=== PATIENT | male | born 1975 | race Caucasian/White ===

== ENCOUNTER 2020-10-03 19:07 | Emergency (ER) | payer OTHER ==
[~2020-10-03] VITALS: Ht 172.7 cm; Wt 56.8 kg
[2020-10-03 19:48] LABS: BASO # 0.1 (0.0-0.2); BASO % 0.8 % (0.0-2.0); EOS # 0.1 (0.0-0.7); EOS % 0.8 % (0-4.0); GRAN # 9.2 (1.4-6.5); GRAN % 72.3 % (42.2-75.2); HEMATOCRIT 43.2 % (42.0-52.0); HEMOGLOBIN 14.6 g/dl (13.5-18.0); LYMPH # 2.2 (1.2-3.4); LYMPH % 17.5 % (20.0-51.0); MEAN CELL VOLUME 91 fl (80.0-100.0); MEAN CORPUSCULAR HEMOGLOBIN 31 pg (27.0-31.0); MEAN CORPUSCULAR HGB CONC 34 g/dl (33.0-37.0); MEAN PLATELET VOLUME 9.2 fl (7.4-10.4); MONO # 1.1 (0.1-0.6); MONO % 8.4 % (1.7-9.3); PLATELET COUNT 447 K/mm3 (130-400); RED BLOOD COUNT 4.77 M/mm3 (4.20-5.60); REDCELL DISTRIBUTION WIDTH-CV 12.6 % (11.5-14.5)
[2020-10-03 19:53] LABS: ALANINE AMINOTRANSFERASE 17 U/L (4-49); ALBUMIN 4.5 gm/dL (3.5-5.0); ALKALINE PHOSPHATASE 58 U/L (50-136); ANION GAP 11 mmol/L (7-16); AST,SGOT 40 U/L (15-37); BILIRUBIN,TOTAL 0.6 mg/dL (0.0-1.0); BLOOD UREA NITROGEN 14 mg/dL (9-20); CALCIUM 9.4 mg/dL (8.4-10.2); CARBON DIOXIDE 27 mmol/L (22-30); CHLORIDE 105 mmol/L (98-107); CREATININE, serum 1.16 (0.66-1.25); GLUCOSE 123 mg/dL (74-106); POTASSIUM 3.8 mmol/L (3.4-5.0); SODIUM 142 mmol/L (137-145); TOTAL PROTEIN 7.8 gm/dL (6.4-8.2)
[2020-10-03 20:09] LABS: TROPONIN-I < 0.012 ng/mL (0.000-0.035)
[2020-10-03 23:04] VITALS: BP 110/71; PULSE 67; TEMP 98.1
== END 2020-10-03 23:05 | disposition home or self-care (01) ==
LOC: COL.ER 19:07
PROVIDERS: Personal Emergency Response Attendant
DX: R07.2 Precordial pain (principal); I25.10 Atherosclerotic heart disease of native coronary artery without angina pectoris; I25.2 Old myocardial infarction; F17.200 Nicotine dependence, unspecified, uncomplicated; Z95.9 Presence of cardiac and vascular implant and graft, unspecified
CPT/HCPCS: J2270; J2405

== ENCOUNTER 2020-10-04 07:29 | Emergency (ER) | payer OTHER ==
[~2020-10-04] VITALS: Ht 172.7 cm; Wt 56.8 kg
[2020-10-04 07:35] VITALS: BP 131/89; TEMP 97.7
[2020-10-04 08:13] LABS: COLLECTION METHOD CLEAN CATCH
[2020-10-04 08:21] LABS: MUCOUS Present /lpf; PH 5 (5-8); SQUAMOUS EPITHELIAL None Seen /hpf; URINE APPEARANCE Clear; URINE BACTERIA None Seen /hpf; URINE BILIRUBIN Negative (NEGATIVE); URINE BLOOD Negative (NEGATIVE); URINE COLOR Yellow; URINE GLUCOSE Negative (NEGATIVE); URINE KETONE Negative (NEGATIVE); URINE LEUKOCYTE ESTERASE Negative (NEGATIVE); URINE NITRATE Negative (NEGATIVE); URINE PROTEIN(semi-quant) Negative (NEGATIVE); URINE RBC 0-2 /hpf; URINE UROBILINOGEN >=4.0 mg/dL (NEGATIVE)
[2020-10-04 08:27] LABS: BASO # 0.1 (0.0-0.2); BASO % 1.2 % (0.0-2.0); EOS # 0.3 (0.0-0.7); EOS % 3.8 % (0-4.0); GRAN # 4.3 (1.4-6.5); GRAN % 57.9 % (42.2-75.2); HEMATOCRIT 39.6 % (42.0-52.0); HEMOGLOBIN 13.1 g/dl (13.5-18.0); LYMPH # 1.9 (1.2-3.4); LYMPH % 25.1 % (20.0-51.0); MEAN CELL VOLUME 92 fl (80.0-100.0); MEAN CORPUSCULAR HEMOGLOBIN 31 pg (27.0-31.0); MEAN CORPUSCULAR HGB CONC 33 g/dl (33.0-37.0); MEAN PLATELET VOLUME 8.8 fl (7.4-10.4); MONO # 0.9 (0.1-0.6); MONO % 11.7 % (1.7-9.3); PLATELET COUNT 364 K/mm3 (130-400); REDCELL DISTRIBUTION WIDTH-CV 12.8 % (11.5-14.5)
[2020-10-04 08:30] LABS: ACETAMINOPHEN < 10 ug/mL (10-30); ALANINE AMINOTRANSFERASE 14 U/L (4-49); ALBUMIN 3.9 gm/dL (3.5-5.0); ALKALINE PHOSPHATASE 57 U/L (50-136); ANION GAP 4 mmol/L (7-16); AST,SGOT 29 U/L (15-37); BILIRUBIN,TOTAL 0.3 mg/dL (0.0-1.0); BLOOD UREA NITROGEN 22 mg/dL (9-20); CALCIUM 8.4 mg/dL (8.4-10.2); CARBON DIOXIDE 27 mmol/L (22-30); CHLORIDE 106 mmol/L (98-107); CREATININE, serum 0.93 (0.66-1.25); GLUCOSE 91 mg/dL (74-106); POTASSIUM 3.6 mmol/L (3.4-5.0); SALICYLATE < 1.0 mg/dL; SODIUM 137 mmol/L (137-145); TOTAL PROTEIN 6.4 gm/dL (6.4-8.2)
[2020-10-04 08:32] LABS: TRICYCLIC ANTIDEPRESS URINE NEGATIVE
[2020-10-04 09:04] LABS: TSH w REFLEX 2.017 uIU/mL (0.350-4.940)
[2020-10-04 14:51] VITALS: PULSE 84
--- NOTE | 2020-10-04 16:34 | NUR ---
trim line worker contacted [facility] and confirmed that they did not have any detox or inpatient treatment beds at this time. Worker contacted and arranged for patient to have a detox phone screen with [facility], which patient did not meet criteria. Worker provided patient with phone numbers to [facility] so that patient can continue to contact them and be screened for inpatient/outpatient treatment. Patient will discharge today.
== END 2020-10-04 14:51 | disposition home or self-care (01) ==
LOC: COL.ER 07:29
PROVIDERS: Emergency Medicine
DX: F15.20 Other stimulant dependence, uncomplicated (principal)

== ENCOUNTER 2020-10-04 21:19 | Emergency (ER) | payer OTHER ==
[~2020-10-04] VITALS: Ht 172.7 cm; Wt 68.2 kg
[2020-10-04 21:50] LABS: COLLECTION METHOD CLEAN CATCH
[2020-10-04 21:56] LABS: BASO # 0.1 (0.0-0.2); BASO % 1.2 % (0.0-2.0); EOS # 0.3 (0.0-0.7); EOS % 3.5 % (0-4.0); GRAN % 66.8 % (42.2-75.2); HEMATOCRIT 40.6 % (42.0-52.0); HEMOGLOBIN 13.6 g/dl (13.5-18.0); LYMPH # 1.7 (1.2-3.4); LYMPH % 22.1 % (20.0-51.0); MEAN CELL VOLUME 92 fl (80.0-100.0); MEAN CORPUSCULAR HEMOGLOBIN 31 pg (27.0-31.0); MEAN CORPUSCULAR HGB CONC 34 g/dl (33.0-37.0); MEAN PLATELET VOLUME 8.9 fl (7.4-10.4); MONO # 0.5 (0.1-0.6); PLATELET COUNT 384 K/mm3 (130-400); REDCELL DISTRIBUTION WIDTH-CV 12.9 % (11.5-14.5)
[2020-10-04 21:58] LABS: MUCOUS Present /lpf; PH 5 (5-8); SQUAMOUS EPITHELIAL None Seen /hpf; URINE APPEARANCE Clear; URINE BACTERIA None Seen /hpf; URINE BILIRUBIN Negative (NEGATIVE); URINE BLOOD Negative (NEGATIVE); URINE COLOR Yellow; URINE GLUCOSE Negative (NEGATIVE); URINE KETONE Negative (NEGATIVE); URINE LEUKOCYTE ESTERASE Negative (NEGATIVE); URINE NITRATE Negative (NEGATIVE); URINE PROTEIN(semi-quant) Negative (NEGATIVE); URINE RBC 0-2 /hpf; URINE UROBILINOGEN >=4.0 mg/dL (NEGATIVE)
[2020-10-04 22:09] LABS: TRICYCLIC ANTIDEPRESS URINE NEGATIVE
[2020-10-04 22:24] LABS: ALANINE AMINOTRANSFERASE 16 U/L (4-49); ALBUMIN 4.1 gm/dL (3.5-5.0); ALKALINE PHOSPHATASE 54 U/L (50-136); ANION GAP 8 mmol/L (7-16); AST,SGOT 33 U/L (15-37); BILIRUBIN,TOTAL 0.3 mg/dL (0.0-1.0); BLOOD UREA NITROGEN 22 mg/dL (9-20); CALCIUM 8.7 mg/dL (8.4-10.2); CARBON DIOXIDE 22 mmol/L (22-30); CHLORIDE 107 mmol/L (98-107); CREATININE, serum 0.92 (0.66-1.25); GLUCOSE 92 mg/dL (74-106); POTASSIUM 3.7 mmol/L (3.4-5.0); SODIUM 137 mmol/L (137-145); TOTAL PROTEIN 6.8 gm/dL (6.4-8.2)
[2020-10-04 22:25] LABS: ACETAMINOPHEN < 10 ug/mL (10-30); ALCOHOL(ethanol),MEDICAL < 10 mg/dL; SALICYLATE < 1.0 mg/dL
[2020-10-05 00:10] VITALS: BP 108/68; PULSE 67; TEMP 98
== END 2020-10-05 00:10 | disposition home or self-care (01) ==
LOC: COL.ER 21:19
PROVIDERS: Emergency Medicine
DX: R45.851 Suicidal ideations (principal); F15.10 Other stimulant abuse, uncomplicated; F31.9 Bipolar disorder, unspecified; I25.10 Atherosclerotic heart disease of native coronary artery without angina pectoris; F17.200 Nicotine dependence, unspecified, uncomplicated; Z95.5 Presence of coronary angioplasty implant and graft

== ENCOUNTER 2020-10-07 12:42 | Emergency (ER) | payer OTHER ==
[~2020-10-07] VITALS: Ht 172.7 cm; Wt 56.8 kg
[2020-10-07 13:20] VITALS: TEMP 98.4
[2020-10-07 14:07] LABS: BASO # 0.1 (0.0-0.2); BASO % 1.1 % (0.0-2.0); EOS # 0.2 (0.0-0.7); EOS % 2.4 % (0-4.0); GRAN # 5.8 (1.4-6.5); GRAN % 69.4 % (42.2-75.2); HEMATOCRIT 44.3 % (42.0-52.0); HEMOGLOBIN 14.4 g/dl (13.5-18.0); LYMPH # 1.7 (1.2-3.4); LYMPH % 20.1 % (20.0-51.0); MEAN CELL VOLUME 93 fl (80.0-100.0); MEAN CORPUSCULAR HEMOGLOBIN 30 pg (27.0-31.0); MEAN CORPUSCULAR HGB CONC 33 g/dl (33.0-37.0); MONO # 0.6 (0.1-0.6); MONO % 6.8 % (1.7-9.3); PLATELET COUNT 395 K/mm3 (130-400); RED BLOOD COUNT 4.75 M/mm3 (4.20-5.60)
[2020-10-07 14:18] LABS: ALANINE AMINOTRANSFERASE 13 U/L (4-49); ALBUMIN 3.5 gm/dL (3.5-5.0); ALKALINE PHOSPHATASE 48 U/L (50-136); ANION GAP 5 mmol/L (7-16); AST,SGOT 22 U/L (15-37); BILIRUBIN,TOTAL 0.3 mg/dL (0.0-1.0); BLOOD UREA NITROGEN 15 mg/dL (9-20); CALCIUM 8.9 mg/dL (8.4-10.2); CARBON DIOXIDE 29 mmol/L (22-30); CHLORIDE 105 mmol/L (98-107); CREATININE, serum 0.84 (0.66-1.25); GLUCOSE 57 mg/dL (74-106); POTASSIUM 4.4 mmol/L (3.4-5.0); SODIUM 139 mmol/L (137-145); TOTAL PROTEIN 6.3 gm/dL (6.4-8.2)
[2020-10-07 14:39] LABS: TROPONIN-I < 0.012 ng/mL (0.000-0.035)
[2020-10-07 18:02] VITALS: BP 120/84; PULSE 61
== END 2020-10-07 18:07 | disposition home or self-care (01) ==
LOC: COL.ER 12:42
PROVIDERS: Emergency Medicine
DX: R07.89 Other chest pain (principal); F17.210 Nicotine dependence, cigarettes, uncomplicated; Z95.5 Presence of coronary angioplasty implant and graft

== ENCOUNTER 2020-11-01 11:16 | Emergency (ER) | payer MEDICAID ==
[~2020-11-01] VITALS: Ht 172.7 cm; Wt 66.8 kg
[2020-11-01 11:37] LABS: BASO # 0.1 (0.0-0.2); EOS # 0.3 (0.0-0.7); EOS % 2.1 % (0-4.0); GRAN % 72.5 % (42.2-75.2); HEMATOCRIT 39.8 % (42.0-52.0); HEMOGLOBIN 13.4 g/dl (13.5-18.0); LYMPH % 15.7 % (20.0-51.0); MEAN CELL VOLUME 91 fl (80.0-100.0); MEAN CORPUSCULAR HEMOGLOBIN 31 pg (27.0-31.0); MEAN CORPUSCULAR HGB CONC 34 g/dl (33.0-37.0); MEAN PLATELET VOLUME 9.1 fl (7.4-10.4); MONO % 8.1 % (1.7-9.3); PLATELET COUNT 422 K/mm3 (130-400); RED BLOOD COUNT 4.36 M/mm3 (4.20-5.60); REDCELL DISTRIBUTION WIDTH-CV 13.2 % (11.5-14.5)
[2020-11-01 11:49] LABS: ALANINE AMINOTRANSFERASE 14 U/L (4-49); ALKALINE PHOSPHATASE 43 U/L (50-136); ANION GAP 7 mmol/L (7-16); AST,SGOT 20 U/L (15-37); BILIRUBIN,TOTAL 0.3 mg/dL (0.0-1.0); BLOOD UREA NITROGEN 22 mg/dL (9-20); CALCIUM 9.7 mg/dL (8.4-10.2); CARBON DIOXIDE 25 mmol/L (22-30); CHLORIDE 109 mmol/L (98-107); CREATININE, serum 0.87 (0.66-1.25); GLUCOSE 101 mg/dL (74-106); LIPASE 39 U/L (23-300); SODIUM 141 mmol/L (137-145); TOTAL PROTEIN 6.6 gm/dL (6.4-8.2)
[2020-11-01 11:51] LABS: C-REACTIVE PROTEIN < 0.5 mg/dL (0.0-0.9)
[2020-11-01 11:59] LABS: TROPONIN-I < 0.012 ng/mL (0.000-0.035)
[2020-11-01 12:12] LABS: COLLECTION METHOD CLEAN CATCH
[2020-11-01 12:17] LABS: PH 5 (5-8); SQUAMOUS EPITHELIAL None Seen /hpf; URINE APPEARANCE Clear; URINE BACTERIA None Seen /hpf; URINE BILIRUBIN Negative (NEGATIVE); URINE BLOOD Negative (NEGATIVE); URINE COLOR Yellow; URINE GLUCOSE Negative (NEGATIVE); URINE KETONE Negative (NEGATIVE); URINE LEUKOCYTE ESTERASE Negative (NEGATIVE); URINE NITRATE Negative (NEGATIVE); URINE PROTEIN(semi-quant) Negative (NEGATIVE); URINE RBC 0-2 /hpf; URINE UROBILINOGEN Negative (NEGATIVE)
[2020-11-01 13:00] VITALS: BP 119/97; PULSE 75
== END 2020-11-01 13:08 | disposition home or self-care (01) ==
LOC: COL.ER 11:16
PROVIDERS: Nurse Practitioner Primary Care
DX: R07.89 Other chest pain (principal); I25.2 Old myocardial infarction; I25.10 Atherosclerotic heart disease of native coronary artery without angina pectoris; F17.210 Nicotine dependence, cigarettes, uncomplicated; Z95.5 Presence of coronary angioplasty implant and graft

== ENCOUNTER 2020-12-19 12:52 | Emergency (ER) | payer MEDICAID ==
[~2020-12-19] VITALS: Ht 172.7 cm; Wt 70.5 kg
[2020-12-19 13:12] VITALS: BP 124/85; TEMP 98.2
[2020-12-19] MEDS ORDERED: TRIAMCINOLONE AC0.13 TOP (13:36)
[2020-12-19 13:50] VITALS: PULSE 90
== END 2020-12-19 13:50 | disposition home or self-care (01) ==
LOC: COL.ER 12:52
DX: L30.9 Dermatitis, unspecified (principal); F17.200 Nicotine dependence, unspecified, uncomplicated

== ENCOUNTER 2020-12-20 16:50 | Emergency (ER) | payer SELFPAY ==
[~2020-12-20] VITALS: Ht 172.7 cm; Wt 70.5 kg
[~2020-12-20 16:50] MED LIST: TRIAMCINOLONE AC0.13 TOP
[2020-12-20 16:53] VITALS: TEMP 98.7
[2020-12-20 18:09] VITALS: BP 121/86; PULSE 85
== END 2020-12-20 18:21 | disposition home or self-care (01) ==
LOC: COL.ER 16:50
DX: M79.604 Pain in right leg (principal); F17.210 Nicotine dependence, cigarettes, uncomplicated

== ENCOUNTER → 2020-12-22 | Outpatient (CLI) | payer MEDICAID ==
[~2020-12-22] MED LIST changes: +AMOXICILLIN 8751 TAB PO; +ASPIRIN 81M81 MG/TA2 PO; +CIPRO 500MG TA500 MG PO; +DEPAKOTE 250MG250 MG PO; +DESYREL 50MG50 MG PO; +IMODIUM 2MG CAPS2 MG PO; +ISORDIL TITRADO30 MG PO; +LIPITOR20 MG PO; +MEDROL 4MG DOSPA4 MG PO; +NEURONTIN300 MG/CAP PO; +NITROSTAT0.4 MG/TAB SL; +PLAVIX 75MG TAB75 MG PO; +PROBIOTIC ACID1 EAC3 PO; +SEROQUEL 2525 MG/TAB; +SULFAMYLON TP; +TRIAM OI 0.1 454 TP; +ZESTRIL 5MG5 MG PO; +[UNRECOGNIZED DRUG - OTHER] TP
== END ==
LOC: COL.VAS 07:29
DX: M79.604 Pain in right leg (principal); Z95.9 Presence of cardiac and vascular implant and graft, unspecified

== ENCOUNTER 2020-12-31 03:58 | Inpatient (IN) | payer SELFPAY ==
[~2020-12-31] VITALS: Ht 172.7 cm; Wt 72.0 kg
[~2020-12-31 03:58] MED LIST changes: -AMOXICILLIN 8751 TAB PO; -ASPIRIN 81M81 MG/TA2 PO; -CIPRO 500MG TA500 MG PO; -DEPAKOTE 250MG250 MG PO; -DESYREL 50MG50 MG PO; -IMODIUM 2MG CAPS2 MG PO; -ISORDIL TITRADO30 MG PO; -LIPITOR20 MG PO; -MEDROL 4MG DOSPA4 MG PO; -NEURONTIN300 MG/CAP PO; -NITROSTAT0.4 MG/TAB SL; -PLAVIX 75MG TAB75 MG PO; -PROBIOTIC ACID1 EAC3 PO; -SEROQUEL 2525 MG/TAB; -SULFAMYLON TP; -TRIAM OI 0.1 454 TP; -ZESTRIL 5MG5 MG PO; -[UNRECOGNIZED DRUG - OTHER] TP
[2020-12-31 06:21] LABS: BASO # 0.1 K/mm3 (0.0-0.2); BASO % 1.5 % (0.0-2.0); EOS # 0.8 K/mm3 (0.0-0.7); EOS % 10.4 % (0-4.0); GRAN # 4.2 K/mm3 (1.4-6.5); GRAN % 53.6 % (42.2-75.2); HEMATOCRIT 39.3 % (42.0-52.0); HEMOGLOBIN 13.2 g/dl (13.5-18.0); LYMPH # 1.9 K/mm3 (1.2-3.4); LYMPH % 24.9 % (20.0-51.0); MEAN CELL VOLUME 93 fl (80.0-100.0); MEAN CORPUSCULAR HEMOGLOBIN 31 pg (27.0-31.0); MEAN CORPUSCULAR HGB CONC 34 g/dl (33.0-37.0); MEAN PLATELET VOLUME 9.5 fl (7.4-10.4); MONO # 0.7 K/mm3 (0.1-0.6); MONO % 9.1 % (1.7-9.3); PLATELET COUNT 399 K/mm3 (130-400); RED BLOOD COUNT 4.25 M/mm3 (4.20-5.60); REDCELL DISTRIBUTION WIDTH-CV 13.1 % (11.5-14.5)
[2020-12-31 06:43] LABS: ALBUMIN 3.4 gm/dL (3.5-5.0); BILIRUBIN,TOTAL 0.2 mg/dL (0.2-1.2); C-REACTIVE PROTEIN 0.17 mg/dL (0.00-0.50); CREATININE, serum 0.93 mg/dL (0.72-1.25); POTASSIUM 3.9 mmol/L (3.5-4.5); TOTAL PROTEIN 6.3 gm/dL (6.2-8.1)
[2020-12-31] MEDS ORDERED: ISORDIL TITRADO30 MG PO (13:18)
[2020-12-31] MEDS ORDERED: PLAVIX 75MG TAB75 MG PO (13:19)
--- NOTE | 2020-12-31 13:20 | NUR ---
ATTEMPTED TO DO MED REC WITH PT, HOWEVER HE DOES NOT REMEMBER THE NAMES OR THE STRENGTH OF MOST OF HIS MEDICATIONS. REPORTS TAKING 5 PILLS IN THE MORNING AND2 IN THE AFTERNOON. WAS ABLE TO RECALL 2 MEDICATION NAMES AND THOSE ARE LISTED IN MED REC.
[2020-12-31] MEDS ORDERED: ASPIRIN 81M81 MG/TA2 PO (14:28)
[2020-12-31] MEDS ORDERED: LIPITOR20 MG PO (14:29)
[2020-12-31] MEDS ORDERED: DEPAKOTE 250MG250 MG PO (14:31)
[2020-12-31] MEDS ORDERED: NEURONTIN300 MG/CAP PO (14:31)
[2020-12-31] MEDS ORDERED: NITROSTAT0.4 MG/TAB SL (14:33)
[2020-12-31] MEDS ORDERED: ZESTRIL 5MG5 MG PO (14:33)
[2020-12-31] MEDS ORDERED: SEROQUEL 2525 MG/TAB (14:36)
[2020-12-31] MEDS ORDERED: DESYREL 50MG50 MG PO (14:38)
[2020-12-31 16:01] VITALS: BP 109/75; PULSE 82; TEMP 98.4
[2020-12-31 20:00] VITALS: BP 96/55; PULSE 57; TEMP 97
--- NOTE | 2021-01-01 03:47 | NUR ---
PT IN BED. NO N/V. PT HAS SLEPT MOST OF THE NIGHT. PT HAS MULTIPLE LESIONS ON BOTH FEET, ESPECIALLY NEAR TOES. SOME THICK DRAINAGE NOTED. FOWL ODOR COMING FROM BOTH FEET.
[2021-01-01 06:56] LABS: BASO # 0.1 K/mm3 (0.0-0.2); BASO % 1.7 % (0.0-2.0); EOS # 0.6 K/mm3 (0.0-0.7); EOS % 10.2 % (0-4.0); GRAN % 52.1 % (42.2-75.2); HEMATOCRIT 41.6 % (42.0-52.0); HEMOGLOBIN 13.9 g/dl (13.5-18.0); LYMPH # 1.5 K/mm3 (1.2-3.4); LYMPH % 25.6 % (20.0-51.0); MEAN CELL VOLUME 92 fl (80.0-100.0); MEAN CORPUSCULAR HEMOGLOBIN 31 pg (27.0-31.0); MEAN CORPUSCULAR HGB CONC 33 g/dl (33.0-37.0); MEAN PLATELET VOLUME 9.1 fl (7.4-10.4); MONO # 0.6 K/mm3 (0.1-0.6); MONO % 9.9 % (1.7-9.3); PLATELET COUNT 390 K/mm3 (130-400); RED BLOOD COUNT 4.53 M/mm3 (4.20-5.60); REDCELL DISTRIBUTION WIDTH-CV 13.2 % (11.5-14.5)
[2021-01-01 07:09] VITALS: BP 123/57; PULSE 59; TEMP 97.7
[2021-01-01 07:13] LABS: CALCIUM 9.1 mg/dL (8.4-10.2); CREATININE, serum 0.87 mg/dL (0.72-1.25); POTASSIUM 3.8 mmol/L (3.5-4.5)
--- NOTE | 2021-01-01 09:09 | NUR ---
Patient up to chair. Soaked his feet in surgical scrub. Attempted to cleanse them with wash cloth, but it was painful for patient. Both feet (more toes) are draining & odourous. reddened. I did speak with [facility] SWAN about getting patient medication for pain. Patient ordering breakfast. Am medications given. Will mana.
--- NOTE | 2021-01-01 09:26 | NUR ---
Student Pa rounded. Patient hand rash discussed. We reviewed his history with priosis. Pain medication reviewed and given per orders. Will monitor.
--- NOTE | 2021-01-01 10:05 | NUR ---
JUVENTINO met with the patient to discuss discharge plan. The patient states that he has been residing at one of [facility]'s transitional homes. He states that he lives there with four other men. He reports independence with ADLs and does not have any DME. The patient's PCP is Dr. Jairo Coley in [place], but he states that he would like to get switched to a [facility] provider. The patient receives his medications from [facility]. He reports difficulties affording his meds. The patient confirms that he has Medicaid, but he states that it does not provide much presciption coverage. JUVENTINO informed him of [employer] and [employer]. The patient reports that he has utilized [employer] in the past. The patient does not have a DPOA-HC, but he was interested in obtaining a form. JUVENTINO provided. The patient states that he is not and does not have any children. He states that his mother, Sandra Wolfe ([place]), is alive; but that she would rather see him in the grave. JUVENTINO informed him that his mother is his legal next of kin. The patient verbalized understanding. The patient has his friend, Cat Ha (ph#[phone]), as his person to contact. He reports that she is a nurse and has helped him a lot with things. The patient plans to return back to the transitional home upon discharge. JUVENTINO provided the patient with a list of [facility] Providers, [facility]'s Resource Guide, and a GoodRx card. JUVENTINO contacted Francisca at [facility] and confirmed that the patient is their Transitional Home. This home is for current [place] patients that are actively seeking employment or employed. She states that they do not provide transportation. SW to continue to follow. *Discharge plan: Transitional House*
[2021-01-01 11:17] VITALS: BP 104/70; PULSE 102
--- NOTE | 2021-01-01 11:30 | NUR ---
Patient sitting up in chair. Pain better managed at this time. Hospitalist team rounded & called for consult.
[2021-01-01 11:32] VITALS: TEMP 98.5
--- NOTE | 2021-01-01 14:07 | NUR ---
rounded & dressings applied to feet/toes. xeroform & kerlix, to change bid. Patient reports feet feel better with dressings applied.
[2021-01-01 15:23] VITALS: BP 108/61; PULSE 69; TEMP 97.6
--- NOTE | 2021-01-01 17:46 | NUR ---
Patient has ordered dinner. New antibioitcs ordered. plan of care reviewed. Report to be given to nightshift nurse
[2021-01-01 19:28] VITALS: BP 104/65; PULSE 96; TEMP 98.4
--- NOTE | 2021-01-01 19:30 | NUR ---
Report received, assumed care for retail commission sales associate. Assessment complete. A&Ox4. Denies nausea/shortness of breath. Rating pain 4/10 on pain scale to bilat feet-described as throbbing-states he can wait for pain meds that can be given at 2100. Plan of care discussed for this shift to include meds/pain control/calling for questions/concerns. Verbalizes understanding/denies current needs. Call light in reach. Will monitor.
--- NOTE | 2021-01-01 20:20 | NUR ---
Late entry-Notified Marck of updated med rec with correct dosages and scheduling. Also notified of allergy to seroquel-which was ordered and given 12/31/20. New orders received and initiated.
--- NOTE | 2021-01-01 21:30 | NUR ---
C/O pain to IV site. No redness/swelling noted. Flushes well. Requesting site be moved. 18g to right AC DCd-cath intact. New IV placed to left hand-20g-x1 attempt.
[2021-01-01 23:38] VITALS: BP 94/60; PULSE 77; TEMP 98
[2021-01-02 03:34] VITALS: BP 94/59; PULSE 67; TEMP 98.2
--- NOTE | 2021-01-02 04:27 | NUR ---
Oxycodone/tylenol given for pain rated 7/10 on pain scale to bilat feet-described as constant burning.
--- NOTE | 2021-01-02 04:50 | NUR ---
Dressing change complete to bilat feet-xeroform/gauze. Noted to have purulent drainage on old dressing. Tolerated well.
[2021-01-02 06:45] LABS: HEMOGLOBIN 13.7 g/dl (13.5-18.0); MEAN CELL VOLUME 92 fl (80.0-100.0); MEAN CORPUSCULAR HEMOGLOBIN 31 pg (27.0-31.0); MEAN CORPUSCULAR HGB CONC 33 g/dl (33.0-37.0); MEAN PLATELET VOLUME 9.6 fl (7.4-10.4); PLATELET COUNT 409 K/mm3 (130-400); RED BLOOD COUNT 4.45 M/mm3 (4.20-5.60)
[2021-01-02 07:13] LABS: CREATININE, serum 1.02 mg/dL (0.72-1.25); POTASSIUM 3.7 mmol/L (3.5-4.5)
[2021-01-02 07:47] VITALS: BP 108/52; PULSE 71; TEMP 98.1
--- NOTE | 2021-01-02 10:27 | NUR ---
PT UP INDEPENDENT IN ROOM. VOIDING PRN. AMBULATED WITH THERAPY IN HALLS. PT REPORTING BURNING TO HANDS AFTER USING PRESCRIBED CREAM. PA STUDENT IN DURING MED PASS AND ASSESSMENTS AWARE AND WILL UPDATE . DRESSINGS TO BILATERAL FEET WITH SOME DRAINAGE PRESENT AFTER AMBULATING WITH THEARPY. IV ABX PER ORDERS. DIFFUSE RASH TO BLE INTO GROIN NOTED AND REPORTED TO PA STUDENT. PT IS A/O X4. [facility]
--- NOTE | 2021-01-02 11:15 | NUR ---
DR NGO INTO SEE PT THIS AM. REMOVED DRESSING AND FOUND EXCORIATED TISSUE WITH NO CHANGE FROM PREVIOUS ASSESSMENT PER DR. NGO. HE WILL SPEAK WITH DR. ALANIZ ABOUT POSSIBLE TRANSFER TO BURN UNIT FOR FURTHER TX.
--- NOTE | 2021-01-02 11:16 | NUR ---
REDRESSED BILATERAL FEET WITH TELFA GAUZE AND KERLEX PER DR. NGO.
[2021-01-02 11:29] VITALS: BP 102/79; PULSE 84; TEMP 98.1
--- NOTE | 2021-01-02 12:20 | NUR ---
First visit from the sack maker. No needs right now.
[2021-01-02 13:14] LABS: TRICYCLIC ANTIDEPRESS URINE NEGATIVE
[2021-01-02 15:31] VITALS: BP 109/65; PULSE 93; TEMP 98.3
[2021-01-02 19:27] VITALS: BP 114/67; PULSE 74; TEMP 98.3
--- NOTE | 2021-01-02 20:00 | NUR ---
Bedside shift report from BHARGAV Mistry. Assumed care for cooker meal. Assessment complete. A&Ox4. Denies nausea/shortness of breath. Rating pain 7/10 on pain scale to left foot only-described as burning tightness. Oxycodone given per order. INT to left hand flushes without difficulty. States he has been having liquid stools all day today. Discussed getting a stool specimen. Verbalizes understanding. Plan of care discussed for this shift to include meds/dressing change/calling for questions/concerns. Verbalizes understanding. Denies needs. Call light in reach. Will monitor.
--- NOTE | 2021-01-02 21:00 | NUR ---
Called stating the left foot was still in a lot of pain. States the dressing feels tight and is rubbing on the toes. Dressings changed at this time using sulfamylon cream, non adherent pads and kerlex. Tolerated well. Toes seem more edematous tonight compared to last night. Quarter size spot of purulent drainage noted to pads. States he thinks the dressing was just to tight-after replacement rates pain a 2.
[2021-01-02 23:22] VITALS: BP 114/62; PULSE 90; TEMP 98.1
--- NOTE | 2021-01-03 00:57 | NUR ---
Sitting up in bed watching TV. Rating pain 2/10 to bilat feet-described as intermittent burning. Denies need for intervention. INT flushed and antibiotics started. Denies questions/concerns. Call light in reach. Will monitor.
--- NOTE | 2021-01-03 01:45 | NUR ---
Stool specimen sent to lab.
[2021-01-03 04:21] VITALS: BP 110/59; PULSE 57; TEMP 98.3
--- NOTE | 2021-01-03 05:02 | NUR ---
Rested off and on this shift. Pain controlled with oxycodone/tylenol. Did have on episode of mucous like liquid stool on my shift-reports several on day shift. Denied nausea/shortness of breath. Dressig change completed early due to c/o pinching. Denies current needs. Call light in reach. Will monitor.
[2021-01-03 07:18] LABS: BASO # 0.1 K/mm3 (0.0-0.2); BASO % 0.9 % (0.0-2.0); EOS # 0.1 K/mm3 (0.0-0.7); EOS % 1.7 % (0-4.0); GRAN # 4.4 K/mm3 (1.4-6.5); GRAN % 63.1 % (42.2-75.2); HEMATOCRIT 39.7 % (42.0-52.0); HEMOGLOBIN 13.6 g/dl (13.5-18.0); LYMPH # 1.7 K/mm3 (1.2-3.4); LYMPH % 24.2 % (20.0-51.0); MEAN CELL VOLUME 92 fl (80.0-100.0); MEAN CORPUSCULAR HEMOGLOBIN 31 pg (27.0-31.0); MEAN CORPUSCULAR HGB CONC 34 g/dl (33.0-37.0); MEAN PLATELET VOLUME 9.6 fl (7.4-10.4); MONO # 0.7 K/mm3 (0.1-0.6); MONO % 9.7 % (1.7-9.3); PLATELET COUNT 410 K/mm3 (130-400); RED BLOOD COUNT 4.33 M/mm3 (4.20-5.60); REDCELL DISTRIBUTION WIDTH-CV 12.9 % (11.5-14.5)
[2021-01-03 07:30] VITALS: BP 101/57; PULSE 64; TEMP 97.7
[2021-01-03 07:30] LABS: ALBUMIN 3.4 gm/dL (3.5-5.0); CALCIUM 9.3 mg/dL (8.4-10.2); CREATININE, serum 0.94 mg/dL (0.72-1.25); PHOSPHOROUS 3.5 mg/dL (2.3-4.7); POTASSIUM 3.6 mmol/L (3.5-4.5)
[2021-01-03 11:42] VITALS: BP 104/60; PULSE 95; TEMP 98.2
[2021-01-03 15:59] VITALS: BP 117/64; PULSE 89; TEMP 98.2
--- NOTE | 2021-01-03 18:00 | NUR ---
PT HAD UNEVENTFUL SHIFT. COMPLAINED OF BOUTS OF DIARRHEA DUE TO ANTIBIOTICS. HOSPITALIST MADE AWARE AND ORDERED MEDS. PT DENIES PAIN. NO OTHER NEEDS AT THIS TIME. CALL MCNEIL IN REACH
[2021-01-03 18:56] VITALS: BP 114/76; PULSE 79; TEMP 98.4
--- NOTE | 2021-01-03 22:00 | NUR ---
PT A&O X3, PLEASANT ET CONVERSES EASILY. WOUND CARE COMPLETED ON BILATERAL FEET, SULFAMYLON CREAM APPLIED WITH STERILE GLOVES. MINIMAL DRAINAGE SEEN ON DRESSINGS REMOVED. PT STATES THAT HE IS HAVING RIGHT ARM PAIN FROM PICC LINE, BELIEVES IT MAY BE FROM IV TUBING PULLING. WANDA WRAP UNWRAPPED ET SITE IS ASSESSED. NO REDNESS OR EDEMA SEEN. BOTH PORTS FLUSH EASILY WITH GOOD BLOOD RETURN. WANDA WRAP IS REWRAPPED CLOSER TO END OF PORTS TO PREVENT PULLING.
[2021-01-03 22:59] VITALS: BP 116/72; PULSE 77; TEMP 98.3
[2021-01-04 02:59] VITALS: BP 96/56; PULSE 69; TEMP 98.3
--- NOTE | 2021-01-04 05:29 | NUR ---
PT'S PURPLE PORT ON PICC FLUSHED AFTER ZOSYN FINISHED INFUSING. PT IS DROWSY, STATES THAT PAIN IN RIGHT ARM IS LESSENED, ACHES A BIT WITH MOVEMENT. PT DENIES OTHER NEEDS. DRESSINGS INTACT TO BILATERAL FEET. RESPIRATIONS UNLABORED. CALL LIGHT WITHIN REACH.
[2021-01-04 08:00] VITALS: BP 100/54; PULSE 71; TEMP 97.9
--- NOTE | 2021-01-04 10:20 | NUR ---
PT UP TO SHOWER AND BR INDEPENDENTLY. DR NGO IN TO SEE PT THIS AM. FEET MUCH IMPROVED FROM PRIOR DAYS. CONTINUE WITH POC. PT FEELING MUCH BETTER.
[2021-01-04 11:34] VITALS: BP 99/65; PULSE 104; TEMP 98.2
--- NOTE | 2021-01-04 13:09 | NUR ---
First visit from the inspector outside steam distribution. No needs right now.
[2021-01-04 15:39] VITALS: BP 126/80; PULSE 99; TEMP 98.6
--- NOTE | 2021-01-04 18:51 | NUR ---
PT HAS HAD LOOSE STOOLS X6 THIS SHIFT. GI PANEL NEGATIVE 01/03.
[2021-01-04 19:43] VITALS: BP 1126/68; PULSE 97; TEMP 97.9
--- NOTE | 2021-01-04 21:03 | NUR ---
Patient assessed around 1944. Denies pain and discomfort. PICC to RUE with ABX running per orders. Dressing to bilateral feet CDI. Not changed at this time, but will prior to patient going to bed. Voices no questions, needs, or concerns at this time. In bed with call light within reach.
[2021-01-05] VITALS: BP 117/80; PULSE 94; TEMP 97.8
[2021-01-05 04:00] VITALS: BP 110/63; PULSE 68; TEMP 98.1
--- NOTE | 2021-01-05 05:23 | NUR ---
Patient given PRN Roxicodone once this shift as requested for pain to left great toe. Received IV ABXs per orders. Voices no further questions, needs, or concerns at this time. In bed with call light within reach.
[2021-01-05 06:23] LABS: BASO # 0.1 K/mm3 (0.0-0.2); BASO % 1.3 % (0.0-2.0); EOS # 0.2 K/mm3 (0.0-0.7); EOS % 2.1 % (0-4.0); GRAN # 4.1 K/mm3 (1.4-6.5); HEMATOCRIT 41.5 % (42.0-52.0); HEMOGLOBIN 13.8 g/dl (13.5-18.0); LYMPH # 2.6 K/mm3 (1.2-3.4); LYMPH % 33.4 % (20.0-51.0); MEAN CELL VOLUME 93 fl (80.0-100.0); MEAN CORPUSCULAR HEMOGLOBIN 31 pg (27.0-31.0); MEAN CORPUSCULAR HGB CONC 33 g/dl (33.0-37.0); MEAN PLATELET VOLUME 9.5 fl (7.4-10.4); MONO # 0.7 K/mm3 (0.1-0.6); MONO % 8.8 % (1.7-9.3); PLATELET COUNT 429 K/mm3 (130-400); RED BLOOD COUNT 4.48 M/mm3 (4.20-5.60); REDCELL DISTRIBUTION WIDTH-CV 12.9 % (11.5-14.5)
[2021-01-05 06:42] LABS: CALCIUM 9.3 mg/dL (8.4-10.2); CREATININE, serum 0.92 mg/dL (0.72-1.25); POTASSIUM 3.4 mmol/L (3.5-4.5)
[2021-01-05 06:54] VITALS: BP 102/72; PULSE 67; TEMP 97.7
--- NOTE | 2021-01-05 10:05 | NUR ---
Pt doing well so far this morning. He is not having any pain complaints today. Dressing change was done to both feet. Pt reports that his feet are looking and feeling much better. Ointment applied and new dressing applied. Pt tolerated and continued to not have any pain complaints. Pt has had breakfast. No other needs verbalized, call light within reach
[2021-01-05 12:07] VITALS: BP 116/69; PULSE 96; TEMP 98.6
--- NOTE | 2021-01-05 14:35 | NUR ---
JUVENTINO met with the patient to follow up. The patient reports that he is doing okay. He reports that he is getting tired and frustrated of still being here in the hospital. He reports that he talked to one of the men at the sober house and the man informed him that [facility] may have him come back to the Crisis Center and stay there a bit upon discharge. Awaiting ID's recs.
--- NOTE | 2021-01-05 16:24 | NUR ---
ID is recommending that the patient can be switched to oral antibiotics. JUVENTINO staffed with the PA. The patient may be able to discharge tomorrow. JUVENTINO contacted the [facility] to inquire if the patient is able to return straight back to the transitional home. The electrical cad designer reports that they have emailed the correctional casework specialist and that they are waiting to hear back from her. They think the patient should be all good to return back to the transitional home, but they will need to get that confimation. The electrical cad designer reports that they will call this SW's phone number, once they hear back from the correctional casework specialist. They are aware that the patient may tentatively discharge tomorrow. JUVENTINO updated the patient. He is in agreement to the plan. He reports that he will need help with medication assistance. JUVENTINO will need to provide the patient with a med voucher. JUVENTINO updated the PA and asked that his meds be transmitted to [facility].
[2021-01-05 16:31] VITALS: BP 109/69; PULSE 97; TEMP 97.9
[2021-01-05 20:00] VITALS: BP 110/71; PULSE 99; TEMP 98.1
--- NOTE | 2021-01-05 20:30 | NUR ---
PT WANTING TO SHOWER. REMOVED BILATERAL FOOT DRSGS AND WRAPPED RT PICC FOR PT.
--- NOTE | 2021-01-05 21:30 | NUR ---
DRESSINGS APPLIED TO BOTH FEET AFTER PT SHOWERED. TOLERATED WELL. REPORTS BURNING TO BOTH FEET AND ASKING FOR PAIN MEDS. HS MEDS GIVEN AT THIS TIME INCLUDING OXYCODONE 5MG PO. RT PICC REWRAPPED WITH NEW WANDA WRAP. PT IS ALERT AND ORIENTED X4.
[2021-01-06 00:08] VITALS: BP 98/58; PULSE 73; TEMP 97.8
--- NOTE | 2021-01-06 01:00 | NUR ---
IV ANTIBIOTIC CONNECTED TO PATENT RT PICC.
[2021-01-06 03:49] VITALS: BP 92/60; PULSE 82; TEMP 97.8
--- NOTE | 2021-01-06 05:00 | NUR ---
IV ANTIBIOTIC COMPLETE. LABS OBTAINED FROM PICC.
[2021-01-06 07:29] LABS: CALCIUM 9.4 mg/dL (8.4-10.2); CREATININE, serum 0.97 mg/dL (0.72-1.25); POTASSIUM 3.7 mmol/L (3.5-4.5)
[2021-01-06 09:26] VITALS: BP 95/68; PULSE 101; TEMP 98
--- NOTE | 2021-01-06 11:04 | NUR ---
PT INDEPENDENT IN ROOM AND HALLS. DRESSINGS TO BILATERAL FEET CDI WITH GAUZE OVER TELFA AND GAUZE PADS. PICC LINE INTACT WITH GOOD BLOOD RETURN. IV ZOSYN RUNNING. PO KCL GIVEN ORDERED.
[2021-01-06 11:50] VITALS: BP 104/61; PULSE 105; TEMP 98.9
[2021-01-06] MEDS ORDERED: [UNRECOGNIZED DRUG - OTHER] TP (13:39)
[2021-01-06] MEDS ORDERED: TRIAM OI 0.1 454 TP (13:39)
[2021-01-06] MEDS ORDERED: SULFAMYLON TP (13:40)
[2021-01-06] MEDS ORDERED: IMODIUM 2MG CAPS2 MG PO (13:40)
[2021-01-06] MEDS ORDERED: PROBIOTIC ACID1 EAC3 PO (13:41)
[2021-01-06] MEDS ORDERED: CIPRO 500MG TA500 MG PO (13:44)
[2021-01-06] MEDS ORDERED: MEDROL 4MG DOSPA4 MG PO (13:44)
[2021-01-06] MEDS ORDERED: AMOXICILLIN 8751 TAB PO (13:44)
--- NOTE | 2021-01-06 15:27 | NUR ---
SW informed that patient would be discharging on this day 01/06/2021. Nurse stated that patient would have medication taken care of for the weekend, but would need a call placed to patient and [facility] to get medication set up there after. SW informed nurse that SW would inform SW protective services case worker for Friday01/08/2021 to assist with this task. Nurse also stated that patient would need assistance with a taxi voucher back to transitional house. SW confirmed transfer with facility and patient. SW called [facility] to set up transport of patient. SW met with patient to inform of above information. Patient appreciative to information provided. Nothing further.
--- NOTE | 2021-01-06 16:01 | NUR ---
PT TOLERATED PICC LINE REMOVAL WELL, DISCHARGE INSTRUCTIONS REVIEWED WITH PATIENT. APPTS FAXED TO CLINICS. PT INFORMED OF APPTS PENDING. PT VERBALIZED UNDERSTANDING. PROVIDED EDUCATION ON DRESSING CHANGE AND PROVIDED MATERIALS. NEW MEDICATIONS REVIEWED WITH PT AND PT VERBALIZED UNDERSTANDING. PT WILL ICE CREAM SHOP ASSOCIATE OTHER MEDS ON FRIDAY FROM [facility].
== END 2021-01-06 15:30 | disposition home or self-care (01) | DRG 603 ==
LOC: COL.ER 03:58 → SURG 06:58
PROVIDERS: Emergency Medicine; Internal Medicine; Physician Assistant; Surgery; ADMIT Internal Medicine
PROC: 02HV33Z Insertion of Infusion Device into Superior Vena Cava, Percutaneous Approach (ICD-10-PCS; principal; 2021-01-03)
DX: L03.032 Cellulitis of left toe (principal); K52.1 Toxic gastroenteritis and colitis; L03.031 Cellulitis of right toe; L40.9 Psoriasis, unspecified; I25.10 Atherosclerotic heart disease of native coronary artery without angina pectoris; I10 Essential (primary) hypertension; E78.5 Hyperlipidemia, unspecified; F17.210 Nicotine dependence, cigarettes, uncomplicated; F31.9 Bipolar disorder, unspecified; B96.5 Pseudomonas (aeruginosa) (mallei) (pseudomallei) as the cause of diseases classified elsewhere; B95.1 Streptococcus, group B, as the cause of diseases classified elsewhere; B95.61 Methicillin susceptible Staphylococcus aureus infection as the cause of diseases classified elsewhere; T36.95XA Adverse effect of unspecified systemic antibiotic, initial encounter; E87.6 Hypokalemia; L30.9 Dermatitis, unspecified; F12.90 Cannabis use, unspecified, uncomplicated; F14.90 Cocaine use, unspecified, uncomplicated; F13.90 Sedative, hypnotic, or anxiolytic use, unspecified, uncomplicated; Z20.822 Contact with and (suspected) exposure to COVID-19; I25.2 Old myocardial infarction; Z95.5 Presence of coronary angioplasty implant and graft; Z79.82 Long term (current) use of aspirin
CPT/HCPCS: 99232-AI; 99233-AI; 99239; C1751; G0378; J0696; J1650; J2270; J2543; J7030; J7509; J7512

== ENCOUNTER 2021-03-28 23:04 | Emergency (ER) | payer MEDICAID ==
[~2021-03-28] VITALS: Ht 172.7 cm; Wt 70.5 kg
[~2021-03-28 23:04] MED LIST changes: +AMOXICILLIN 8751 TAB PO; +ASPIRIN 81M81 MG/TA2 PO; +CIPRO 500MG TA500 MG PO; +DEPAKOTE 250MG250 MG PO; +DESYREL 50MG50 MG PO; +IMODIUM 2MG CAPS2 MG PO; +ISORDIL TITRADO30 MG PO; +LIPITOR20 MG PO; +MEDROL 4MG DOSPA4 MG PO; +NEURONTIN300 MG/CAP PO; +NITROSTAT0.4 MG/TAB SL; +PLAVIX 75MG TAB75 MG PO; +PROBIOTIC ACID1 EAC3 PO; +SEROQUEL 2525 MG/TAB; +SULFAMYLON TP; +TRIAM OI 0.1 454 TP; +ZESTRIL 5MG5 MG PO; +[UNRECOGNIZED DRUG - OTHER] TP
[2021-03-28 23:10] VITALS: TEMP 98
[2021-03-28 23:56] LABS: BASO # 0.1 K/mm3 (0.0-0.2); EOS # 0.1 K/mm3 (0.0-0.7); EOS % 0.7 % (0.0-4.0); GRAN # 4.7 K/mm3 (1.4-6.5); GRAN % 58.2 % (42.2-75.2); HEMATOCRIT 42.3 % (42.0-52.0); HEMOGLOBIN 14.2 g/dl (13.5-18.0); LYMPH # 2.4 K/mm3 (1.2-3.4); LYMPH % 29.4 % (20.0-51.0); MEAN CELL VOLUME 89 fl (80.0-100.0); MEAN CORPUSCULAR HEMOGLOBIN 30 pg (27-31); MEAN CORPUSCULAR HGB CONC 34 g/dl (33.0-37.0); MEAN PLATELET VOLUME 9.1 fl (7.4-10.4); MONO # 0.8 K/mm3 (0.1-0.6); MONO % 10.3 % (1.7-9.3); PLATELET COUNT 472 K/mm3 (130-400); RED BLOOD COUNT 4.76 M/mm3 (4.20-5.60); REDCELL DISTRIBUTION WIDTH-CV 12.5 % (11.5-14.5)
[2021-03-29 00:07] LABS: TRICYCLIC ANTIDEPRESS URINE NEGATIVE
[2021-03-29 00:19] LABS: ALANINE AMINOTRANSFERASE 10 U/L (0-55); ALBUMIN 4.1 gm/dL (3.5-5.0); ALKALINE PHOSPHATASE 65 U/L (40-150); ANION GAP 11 mmol/L (7-16); AST,SGOT 43 U/L (5-34); BILIRUBIN,TOTAL 1.6 mg/dL (0.2-1.2); BLOOD UREA NITROGEN 12 mg/dL (9-21); CALCIUM 8.9 mg/dL (8.4-10.2); CARBON DIOXIDE 22 mmol/L (22-29); CHLORIDE 107 mmol/L (98-107); CREATININE, serum 0.96 mg/dL (0.72-1.25); GLUCOSE 87 mg/dL (70-99); POTASSIUM 3.5 mmol/L (3.5-4.5); SODIUM 140 mmol/L (136-145); TOTAL PROTEIN 6.9 gm/dL (6.2-8.1)
[2021-03-29 00:21] LABS: ALCOHOL(ethanol),MEDICAL < 10 mg/dL (0-10)
[2021-03-29 00:27] LABS: TROPONIN-I < 0.010 ng/mL (0.00-0.033)
[2021-03-29 02:25] VITALS: BP 126/87; PULSE 89
== END 2021-03-29 02:25 | disposition home or self-care (01) ==
LOC: COL.ER 23:04
PROVIDERS: Personal Emergency Response Attendant
DX: F22 Delusional disorders (principal); J06.9 Acute upper respiratory infection, unspecified; R07.9 Chest pain, unspecified; I25.10 Atherosclerotic heart disease of native coronary artery without angina pectoris; Z20.822 Contact with and (suspected) exposure to COVID-19; Z79.82 Long term (current) use of aspirin